=== PATIENT | female | born 1975 | race American Indian/Alaskan Native ===

== ENCOUNTER 2016-08-16 20:32 | Observation (INO) | payer MEDICAID ==
[2016-08-16 20:39] VITALS: BMI 23.8
[2016-08-16] MEDS ORDERED: Sodium Chloride 0.9% 1,000 ML IV STA ×2 (20:51→22:20)
[2016-08-16] MEDS ORDERED: Famotidine 20mg/50ml 50 ML IV STA (20:51)
--- NOTE | 2016-08-16 20:56 | ED PDOC ---
Arrival/HPI <Bryan Ribeiro - Last Filed: 08/16/16 22:33> <Nic Street - Last Filed: 08/17/16 00:49> - General Chief Complaint: GI Problem Time Seen by Provider: 08/16/16 20:38 - History of Present Illness Narrative History of Present Illness (Text): 08/16/16 20:53 41-year-old female presents the emergency department with 5 day duration epigastric discomfort accompanied by nausea. Patient states that she initially had vomiting episodes which have since resolved. Patient denies any diarrhea. States that this started after she ate pizza. Denies any fevers or chills, denies any symptoms, no other complaints. Patient was given dexilant by her primary physician with no relief. (Bryan Ribeiro) Past Medical History - Provider Review Nursing Documentation Reviewed: Yes - Infectious Disease Hx of Infectious Diseases: None - Tetanus Immunization Tetanus Immunization: Unknown - Cardiac Hx Cardiac Disorders: Yes Hx Hypertension: Yes - Pulmonary Hx Respiratory Disorders: No - Neurological Hx Neurological Disorder: No - HEENT Hx HEENT Disorder: No - Renal Hx Renal Disorder: No - Endocrine/Metabolic Hx Endocrine Disorders: No - Hematological/Oncological Hx Anemia: Yes Other/Comment: Monthly blood transfusions. - Integumentary Hx Dermatological Disorder: No - Musculoskeletal/Rheumatological Hx Musculoskeletal Disorders: No - Gastrointestinal Hx Gastrointestinal Disorders: No - Genitourinary/Gynecological Hx Genitourinary Disorders: Yes Other/Comment: fibroids - Psychiatric Hx Psychophysiologic Disorder: No Hx Substance Use: No - Past Surgical History Past Surgical History: Non-Contributing - Anesthesia Hx Anesthesia: Yes Hx Anesthesia Reactions: No Hx Malignant Hyperthermia: No - Suicidal Assessment Feels Threatened In Home Enviroment: No <Bryan Ribeiro - Last Filed: 08/16/16 22:33> Family/Social History Family/Social History: Unknown Family HX Smoking Status: Never Smoked Hx Alcohol Use: Yes Frequency of alcohol use: Socially Hx Substance Use: No Hx Substance Use Treatment: No <Bryan Ribeiro - Last Filed: 08/16/16 22:33> Allergies/Home Meds <Bryan Ribeiro - Last Filed: 08/16/16 22:33> <Nic Street - Last Filed: 08/17/16 00:49> Allergies/Adverse Reactions: Allergies iodine Allergy (Verified 08/16/16 20:41) RASH Home Medications: Home Meds Medication Instructions Recorded Confirmed Dexlansoprazole [Dexilant] 30 mg PO DAILY 08/16/16 08/16/16 Lisinopril [Zestril] 5 mg PO DAILY 08/16/16 08/16/16 Physical Exam <Bryan Ribeiro - Last Filed: 08/16/16 22:33> <Nic Street - Last Filed: 08/17/16 00:49> - Physical Exam Narrative Physical Exam (Text): - Review of Systems Constitutional: Normal. absent: Fatigue, Weight Change, Fevers Eyes: Normal ENT: denies sore throat, denies tristhmus Respiratory: Normal. absent: SOB, Cough, Sputum Cardiovascular: absent: Chest Pain, Palpitations, Syncope Gastrointestinal: Abdominal pain, nausea. Genitourinary: Normal. absent: Dysuria, Frequency, Hematuria, vaginal bleeding Musculoskeletal: Normal. absent: Arthralgias, Back Pain, Neck Pain Skin: no rashes, no erythema Neurological: absent: Focal Weakness Endocrine: Normal Hemo/Lymphatic: Normal Psychiatric: No suicidal or homicidal ideations Physical exam Patient appears age appropriate in no distress, speaking full sentences without difficulty - Systems Exam Head: Present: Atraumatic, Normocephalic Pupils: Present: PERRL Extroacular Muscles: Present: EOMI Conjunctiva: Present: Normal Mouth: Present: Moist Mucous Membranes Neck: Present: Normal Range of Motion. No: MIDLINE TENDERNESS, Paraspinal Tenderness Respiratory/Chest: Present: Clear to Auscultation, Good Air Exchange. No: Respiratory Distress, Accessory Muscle Use, Tachypneic Cardiovascular: Present: Regular Rate and Rhythm, Normal S1, S2, Peripheal Pulses Present. No: Murmurs Abdomen: Present: Normal Bowel Sounds. Suprapubic and left lower quadrant tenderness to palpation. No: Right lower quadrant or McBurney's point tenderness , Distention, Peritoneal Signs, Rebound, Guarding Back: Present: Normal Inspection. No: Midline Tenderness, Paraspinal Tenderness Upper Extremity: Present: Normal Inspection. No: Cyanosis, Edema Lower Extremity: Present: Normal Inspection. No: Edema Neurological: Present: GCS=15, Speech Normal, cranial nerves II through XII fully intact with no cerebellar abnormality, neurosensory fully intact. No focal neurological deficits. Skin: Present: Warm, Dry, Normal Color. 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 Differential diagnosis includes but not limited to: Gastritis versus diverticulitis versus UTI Labs, imaging, medications ordered. 08/16/16 22:33 pt continued to have pain and nausea, more meds ordered signed out to Dr. Srteet in stable condition, pending CT, reeval, dispo ( Bryan Ribeiro) - Lab Interpretations Lab Results: 08/16/16 21:15 08/16/16 21:15 Lab Results 08/16/16 22:00: Urine Color yellow, Urine Appearance Clear, Urine pH 7.5, Ur Specific [place] 1.020, Urine Protein Negative, Urine Glucose (UA) Negative, Urine Ketones Negative, Urine Blood Negative, Urine Nitrate Negative, Urine Bilirubin Negative, Urine Urobilinogen 0.2, Ur Leukocyte Esterase Negative 08/16/16 21:15: WBC 7.6 D, RBC 4.51, Hgb 13.2, Hct 39.5, MCV 87.6, MCH 29.3, MCHC 33.4, RDW 13.3, Plt Count 251, MPV 9.8, Gran % 70.6 H, Lymph % (Auto) 19.8 L, Phelps % (Auto) 6.9 H, Eos % (Auto) 2.6, Baso % (Auto) 0.1, Gran # 5.33, Lymph # 1.5, Phelps # 0.5, Eos # 0.2, Baso # 0.01, PT 11.2, INR 1.04, APTT 27.2, Sodium 136, Potassium 3.4 L, Chloride 98, Carbon Dioxide 27, Anion Gap 14, BUN 10, Creatinine 0.7, Est GFR ( Amer) > 60, Est GFR (Non-Af Amer) > 60, Random Glucose 97, Calcium 9.3, Phosphorus 3.0, Magnesium 2.0, Total Bilirubin 0.5, AST 25, ALT 13, Alkaline Phosphatase 71, Total Protein 8.4 H, Albumin 4.3, Globulin 4.2, Albumin/Globulin Ratio 1.0 L, Lipase 52 - RAD Interpretation Narrative RAD Interpretations (Text): CT Abdomen and Pelvis shows: Lower thorax: Heart size is normal. There is minimal atelectasis at the lung bases Stomach is incompletely distended. Rotation is normal. Perihilar distended small bowel loops in the left flank. There is no obstruction.Appendix and terminal ileum are unremarkable. There is moderate stool in the right colon. Left: is incompletely distended which limits evaluation. ABDOMEN: Liver: unremarkable Gallbladder and bile ducts: unremarkable Pancreas: unremarkable Spleen: unremarkable Adrenals: unremarkable Kidneys and ureters: There are bilateral nonobstructing renal stones.Kidneys and ureters are otherwise unremarkable. Stomach and bowel: See above. Appendix: See stomach and bowel PELVIS: Bladder: unremarkable Reproductive: Uterus is enlarged. There are multiple uterine calcifications. There is prominence of the right adnexa with a 4.4 cm cyst. Left adnexa is unremarkable. ABDOMEN and PELVIS: Intraperitoneal space: There is trace free fluid.There is no free air. Bones/joints: There are no acute osseous abnormalities Soft tissues: There is a fat-containing umbilical hernia. Vasculature: Vascular structures are unremarkable. Lymph nodes: There is no pathologic adenopathy. IMPRESSION: Large fibroid uterus; bilateral nonobstructing renal stones, no ureteral stones or hydronephrosis; 4.4 cm right adnexal cyst; trace fluid in the pelvis, physiologic versus recent cyst rupture Additional findings as described above. (Nic Street) Radiology Orders: 08/16/16 20:50 ABD & PELVIS W/O PO OR IV CONT [CT] Stat - Medication Orders Current Medication Orders: Discontinued Medications Diphenhydramine HCl (Benadryl) 25 mg IVP STAT STA Stop: 08/16/16 22:21 Last Admin: 08/16/16 22:43 Dose: 25 MG IVP Administration Document 08/16/16 22:43 MR (Rec: 08/16/16 22:44 MR [id number]) Charges for Administration # of IVP Administrations 1 Famotidine (Pepcid 20mg/50ml Premix) 50 mls @ 100 mls/hr IV STAT STA Stop: 08/16/16 21:20 Last Admin: 08/16/16 21:16 Dose: 100 MLS/HR eMAR Start Stop Document 08/16/16 21:16 MR (Rec: 08/16/16 21:16 MR [id number]) Intravenous Solution Start Date 08/16/16 Start Time 21:16 End Date 08/16/16 End time 21:46 Total Infusion Time 30 Sodium Chloride (Sodium Chloride 0.9%) 1,000 mls @ 1,000 mls/hr IV .Q1H STA Stop: 08/16/16 21:50 Last Admin: 08/16/16 21:15 Dose: 1,000 MLS/HR eMAR Start Stop Document 08/16/16 21:15 MR (Rec: 08/16/16 21:15 MR [id number]) Intravenous Solution Start Date 08/16/16 Start Time 21:15 End Date 08/16/16 End time 22:15 Total Infusion Time 60 Sodium Chloride (Sodium Chloride 0.9%) 1,000 mls @ 1,000 mls/hr IV .Q1H STA Stop: 08/16/16 23:19 Last Admin: 08/16/16 22:44 Dose: 1,000 MLS/HR eMAR Start Stop Document 08/16/16 22:44 MR (Rec: 08/16/16 22:44 MR [id number]) Intravenous Solution Start Date 08/16/16 Start Time 22:44 End Date 08/16/16 End time 23:44 Total Infusion Time 60 Magnesium Sulfate/Dextrose (Magnesium Sulfate 1 Gm/100 Ml D5w) 100 mls @ 100 mls/hr IVPB ONCE ONE Stop: 08/16/16 23:31 Last Admin: 08/16/16 23:43 Dose: Ketorolac Tromethamine (Toradol) 15 mg IVP STAT STA Stop: 08/16/16 20:55 Last Admin: 08/16/16 21:16 Dose: 15 MG IVP Administration Document 08/16/16 21:16 MR (Rec: 08/16/16 21:17 MR [id number]) Charges for Administration # of IVP Administrations 1 Metoclopramide HCl (Reglan) 10 mg IVP STAT STA Stop: 08/16/16 22:21 Last Admin: 08/16/16 22:43 Dose: 10 MG IVP Administration Document 08/16/16 22:43 MR (Rec: 08/16/16 22:43 MR [id number]) Charges for Administration # of IVP Administrations 1 Morphine Sulfate (Morphine) 4 mg IVP STAT STA Stop: 08/16/16 22:32 Last Admin: 08/16/16 22:44 Dose: 4 MG MAR Pain Assessment Document 08/16/16 22:44 MR (Rec: 08/16/16 22:55 MR [id number]) Pain Reassessment Is this a pain reassessment? Yes Sleep Is patient sleeping during reassessment? No Presence of Pain Presence of Pain Yes Pain Scale Used Pain Scale Used Numeric Location Pain Location Body Site Abdomen Description Description Cramping Intensity of Pain at present 8 Aggravating Factors Changing Position Exercise/Activity Alleviating Factors/Management Medication Techniques Alleviating Factors Medication IVP Administration Document 08/16/16 22:44 MR (Rec: 08/16/16 22:55 MR [id number]) Charges for Administration # of IVP Administrations 1 Ondansetron HCl (Zofran Inj) 4 mg IVP STAT STA Stop: 08/16/16 20:52 Last Admin: 08/16/16 21:17 Dose: 4 MG IVP Administration Document 08/16/16 21:17 MR (Rec: 08/16/16 21:17 MR [id number]) Charges for Administration # of IVP Administrations 1 Potassium Chloride (K-Dur 20 Meq Er Tab) 40 meq PO STAT STA Stop: 08/16/16 22:33 Last Admin: 08/16/16 22:44 Dose: 40 MEQ ED OBSERVATION Date of observation admission: 08/16/16 Time of observation admission: 20:35 <Bryan Ribeiro - Last Filed: 08/16/16 22:33> Discharge: Yes <Nic Street Last Filed: 08/17/16 00:49> - Progress Note Progress Note: 08/16/16 22:45 Case endorsed to me by Dr. Ribeiro, pending CT, re-evaluation, disposition. 08/16/16 23:51 Reviewed radiology, CT Abdomen and Pelvis shows: Large fibroid uterus; bilateral nonobstructing renal stones, no ureteral stones or hydronephrosis; 4.4 cm right adnexal cyst; trace fluid in the pelvis, physiologic versus recent cyst rupture. Additional findings as described above. 08/17/16 00:49 On re-evaluation, the patient feels better and is in no acute distress. Pt completely asymptomatic, tolerating PO. Abdomen soft, non-tender. I have discussed the results and plan with the patient, who expresses understanding. Patient in agreement with plan to discharged home. Patient is stable for discharge. Patient was instructed to follow up with physician/clinic in 1-2 days or return if symptoms worsen or new concerning symptoms arise. (Nic Street) Disposition/Present on Arrival - Present on Arrival Any Indicators Present on Arrival: No History of DVT/PE: No History of Uncontrolled Diabetes: No Urinary Catheter: No History of Decub. Ulcer: No History Surgical Site Infection Following: None - Disposition Disposition Time: 20:35 Patient Plan: Observation <Bryan Ribeiro - Last Filed: 08/16/16 22:33> - Present on Arrival Any Indicators Present on Arrival: No - Disposition Have Diagnosis and Disposition been Completed?: Yes Disposition Time: 00:48 Patient Plan: Discharge <Nic Street - Last Filed: 08/17/16 00:49> - Disposition Diagnosis: Gastritis, Ovarian cyst Patient Problems: Current Active Problems Problem Status Diagnosed Gastritis Acute Ovarian cyst Acute Condition: STABLE
[2016-08-16 20:57] VITALS: RESP 18; TEMP 97.5; O2SAT 100
[2016-08-16 21:25] LABS: ADD MANUAL DIFF? NO
[2016-08-16 21:39] LABS: ALKALINE PHOSPHATASE 71 U/L (38-133); ALT/SGPT 13 U/L (7-56); AST/SGOT 25 U/L (15-39); BILIRUBIN,TOTAL 0.5 mg/dL (0.2-1.3); BLOOD UREA NITROGEN 10 mg/dL (7-21); CALCIUM 9.3 mg/dL (8.4-10.5); CARBON DIOXIDE 27 mmol/L (21-33); CHLORIDE 98 mmol/L (98-107); GFR AFRICAN-AMERICAN > 60; GLUCOSE,RANDOM 97 mg/dL (70-110); LIPASE 52 U/L (23-300); POTASSIUM 3.4 mmol/L (3.6-5.0); SODIUM 136 mmol/L (132-148); TOTAL PROTEIN 8.4 g/dL (5.8-8.3)
[2016-08-16 21:46] LABS: BASO # 0.01 K/mm3 (0.0-2.0); BASO % 0.1 % (0.0-3.0); EOS # 0.2 (0.0-0.7); EOS % 2.6 % (1.5-5.0); GRAN # 5.33 (1.4-6.5); GRAN % 70.6 % (50.0-68.0); HEMATOCRIT 39.5 % (36.0-48.0); LYMPH # 1.5 (1.2-3.4); LYMPH % 19.8 % (22.0-35.0); MEAN CELL VOLUME 87.6 fL (80.0-105.0); MEAN CORPUSCULAR HEMOGLOBIN 29.3 pg (25.0-35.0); MEAN CORPUSCULAR HGB CONC 33.4 g/dl (31.0-37.0); MEAN PLATELET VOLUME 9.8 fl (7.0-11.0); MONO # 0.5 (0.1-0.6); MONO % 6.9 % (1.0-6.0); PLATELET COUNT 251 10^3/uL (120.0-450.0); RED CELL DISTRIBUTION WIDTH 13.3 % (11.5-14.5); WHITE BLOOD COUNT 7.6 10^3/ul (4.5-11.0)
[2016-08-16 21:53] LABS: INR 1.04 (0.93-1.08); PARTIAL THROMBOPLASTIN TIME 27.2 Seconds (23.7-30.8)
[2016-08-16] MEDS ORDERED: DiphenhydrAMINE 50 mg/ml Inj IVP STA (22:20)
[2016-08-16] MEDS ORDERED: Morphine 4 mg/ml ISec IVP STA (22:31)
[2016-08-16] MEDS ORDERED: Potassium Chloride 20 mEq ER Tab PO STA (22:32)
[2016-08-16 22:36] LABS: PH,URINE 7.5 (4.7-8.0); URINE BILIRUBIN NEGATIVE (NEGATIVE); URINE BLOOD NEGATIVE (NEGATIVE); URINE GLUCOSE (UA) NEGATIVE (NEGATIVE); URINE KETONE NEGATIVE (NEGATIVE); URINE LEUKOCYTE ESTERASE NEGATIVE Leu/uL (NEGATIVE); URINE PROTEIN NEGATIVE mg/dL (<30 mg/dL); URINE UROBILINOGEN 0.2 E.U./dL (<1 E.U./dL)
[2016-08-16 22:57] LABS: URINE APPEARANCE CLEAR (CLEAR)
--- NOTE | 2016-08-16 23:40 | CT ---
EXAM: CT Abdomen and Pelvis Without Intravenous Contrast. CLINICAL HISTORY: 41 years old, female; Pain; Abdominal pain; Generalized; Additional info: Abd pain TECHNIQUE: Axial computed tomography images of the abdomen and pelvis without intravenous contrast. This CT exam was performed using one or more of the following dose reduction techniques: automated exposure control, adjustment of the mA and/or kV according to patient size, and/or use of iterative reconstruction technique. Coronal and sagittal reformatted images were created and reviewed. EXAM DATE/TIME: 08/16/2016 8:50 PM COMPARISON: There are no prior studies for comparison. FINDINGS: Lower thorax: Heart size is normal. There is minimal atelectasis at the lung bases Stomach is incompletely distended. Rotation is normal. Perihilar distended small bowel loops in the left flank. There is no obstruction.Appendix and terminal ileum are unremarkable. There is moderate stool in the right colon. Left: is incompletely distended which limits evaluation. ABDOMEN: Liver: unremarkable Gallbladder and bile ducts: unremarkable Pancreas: unremarkable Spleen: unremarkable Adrenals: unremarkable Kidneys and ureters: There are bilateral nonobstructing renal stones.Kidneys and ureters are otherwise unremarkable. Stomach and bowel: See above. Appendix: See stomach and bowel PELVIS: Bladder: unremarkable Reproductive: Uterus is enlarged. There are multiple uterine calcifications. There is prominence of the right adnexa with a 4.4 cm cyst. Left adnexa is unremarkable. ABDOMEN and PELVIS: Intraperitoneal space: There is trace free fluid.There is no free air. Bones/joints: There are no acute osseous abnormalities Soft tissues: There is a fat-containing umbilical hernia. Vasculature: Vascular structures are unremarkable. Lymph nodes: There is no pathologic adenopathy. IMPRESSION: Large fibroid uterus; bilateral nonobstructing renal stones, no ureteral stones or hydronephrosis; 4.4 cm right adnexal cyst; trace fluid in the pelvis, physiologic versus recent cyst rupture Additional findings as described above.
[2016-08-17 01:03] VITALS: BP 132/81; PULSE 73
--- NOTE | 2016-08-17 15:41 | CARD ---
APPROVED REPORT EKG Measurement Heart [id number] <Conclusion> Normal sinus rhythm Normal ECG
== END 2016-08-17 00:47 | disposition home or self-care (01) ==
LOC: ED 20:32 → EROBSV 22:35
PROVIDERS: ADMIT Emergency Medicine; ATTEND Emergency Medicine
DX: K29.70 Gastritis, unspecified, without bleeding (principal); N83.201 Unspecified ovarian cyst, right side; I10 Essential (primary) hypertension
CPT/HCPCS: 74176; 80053; 81003; 83690; 83735; 84100; 85025; 85610; 85730; 93005; 96361; 96365; 96375; 96376; 99284; G0378; J1200; J1885; J2270; J2405; J2765; J7040